=== PATIENT | male | born 2000 | race Caucasian/White ===

== ENCOUNTER 2024-09-01 16:59 | Emergency (ER) | payer OTHER, SELFPAY ==
[2024-09-01 17:08] VITALS: BP 153/94; PULSE 98; RESP 20; TEMP 36.6; O2SAT 98
--- NOTE | 2024-09-01 17:09 | ED_ITS ---
HPI - URI/Sore Throat General Chief Complaint: Dental/Oral Stated Complaint: Sinus Pressure Time Seen by Provider: 09/01/24 17:09 Source: patient, RN notes reviewed and old records reviewed Mode of arrival: ambulatory Limitations: no limitations History of Present Illness HPI Narrative: 23 year old rahat who presents to [facility] care with complaints of starting on with some sinus pressure and congestion and on Sunday he started with headache and left upper posterior tooth pain. Patient reports today that pain in his tooth is worse. He reports that he has been taking Ibuprofen and Tylenol sinus for his symptoms. Patient reports no ear pain or any sore throat or any known fevers. MD elicited complaint: rhinorrhea, nasal congestion, sinus pain and other (headache and tooth pain) Onset (ago): day(s) (4-5 days) Pain scale (0-10): 8 Able to tolerate fluids by mouth: Yes Treatments prior to arrival: ibuprofen and other (Tyenol sinus) Related Data Allergies Allergy/AdvReac Type Severity Reaction Status Date / Time No Known Allergies Allergy Verified 09/01/24 17:12 Review of Systems Review of Systems: CONSTITUTIONAL: Denies malaise, chills, sweats, or fever. EYES: Denies visual changes, redness, or discharge. ENT: Reports rhinorrhea, congestion, sinus pain,no otalgia and no sore throat reports left posterior molar pain. CARDIOVASCULAR: Denies chest pain, palpitations, or edema. RESPIRATORY: Reports no cough.? Denies dyspnea. GASTROINTESTINAL: Denies abdominal pain, nausea, vomiting, diarrhea SKIN: Denies rash or itching. MUSCULOSKELETAL: Denies myalgia. NEUROLOGIC:Reports headache. All systems reviewed & are unremarkable except as noted in HPI and below PMFSH Past Medical History Medical History (Updated 09/02/24 @ 19:50 by Polly Elmore NP) History of strep sore throat Bronchitis Social History Social History (Updated 09/02/24 @ 19:49 by Polly Elmore NP) Smoking status: Never smoker Alcohol intake: current Alcohol use details: social Substance use type: does not use Comments At time of signature, agree with nursing past medical, surgical, social and family history. There is no relevant family history pertinent to the presenting complaint Exam Narrative: GENERAL: Well-appearing, well-nourished, and in no acute distress. HEAD: Normocephalic EYES: PERRLA, conjunctivae clear ENT: Nares clear, turbinates edematous and erythematous, clear discharge, sinus pressure and headache. Mucous membranes moist. TM pearly meek with dull light reflex bilaterally; no tragal tenderness. Oropharynx erythematous without lesions. Tonsils not enlarged and without exudate, no drooling, no hoarseness, no trismus, uvula midline, dentition good no fracture or any evidence of caries in left upper posterior molars no swelling or redness of gums. NECK: Supple. No lymphadenopathy CHEST: Clear to auscultation, breath sounds equal. No wheezing, rhonchi, rales, or stridor. No respiratory distress, speaks in full sentences.no cough noted SAO2 98% on room air HEART: Regular rate and rhythm. No murmur heard. SKIN: Warm, dry, no rash. NEURO: Alert and oriented x3. PSYCH: Normal mood and affect Course Course Emergency Course: Patient is aware of diagnosis, understands and agrees to treatment plan.? Anticipatory guidance given.? Patient agrees to follow-up as directed and is aware of reasons to seek care at the emergency department. Portions of this record may have been created with voice recognition software Level of Care: Express Care Visit Vital Signs Vital signs: Vital Signs Temperature 36.6 C 09/01/24 17:08 Pulse Rate 98 09/01/24 17:08 Respiratory Rate 20 09/01/24 17:08 Blood Pressure 153/94 H 09/01/24 17:08 Pulse Oximetry 98 09/01/24 17:08 Oxygen Delivery Room Air 09/01/24 17:08 Temperature 36.6 C 09/01/24 17:08 Pulse Rate 98 09/01/24 17:08 Respiratory Rate 20 09/01/24 17:08 Blood Pressure 153/94 H 09/01/24 17:08 Pulse Oximetry 98 09/01/24 17:08 Oxygen Delivery Room Air 09/01/24 17:08 Reviewed MDM - URI/Sore Throat MDM Narrative Medical decision making narrative: Differential diagnosis considered: Bee virus, strep pharyngitis, allergic rhinitis, upper respiratory tract infection, sinusitis, rhinosinusitis, nasopharyngitis. viral pharyngitis, otitis media, otitis externa, pneumonia, bronchitis, viral cough syndrome, viral syndrome, and influenza.? Exam findings show no acute concerns or changes; patient is non-toxic appearing and is in no distress.? Patient is appropriate for outpatient treatment and follow-up. Differential Diagnosis Differential diagnosis: Likely upper respiratory infection, sinusitis, viral infection and other (tooth pain) Medical Records Attestation: I reviewed the patient's medical records. Lab Data Attestation: I reviewed the patient's lab results. Critical Care Time Critical Care Time Critical Care Time: No Discharge Plan Discharge Clinical Impression: Toothache Sinusitis Qualifiers: Sinusitis location: pansinusitis Chronicity: acute Recurrence: non-recurrent Qualified Code(s): J01.40 - Acute pansinusitis, unspecified Patient Disposition: Home Condition: Stable Instructions: Antibiotic Form, Sinusitis (ED) Additional Instructions: Increase fluids especially juices and water [id number] cough and cold medicine of your choice for your symptoms Zyrtec Claritin or Jael daily Tylenol or ibuprofen for any fever pain heat to the face 20-30 minutes 4-6 times a day for pain Salt water gargles, throat lozenges or throat sprays as desired Antibiotic as directed--finished the medication If your symptoms persist, change or worsen significantly before you can contact your personal physician then please, without delay, go to the emergency department for further evaluation. Follow-up with PCP in 7-10 days or sooner if needed Follow up with PCP soon in regards to your blood pressure which is elevated above threshold for referral. Blood pressure above 120/80 may indicate pre- hypertension. 153/94 Patient Language: [place] Prescriptions: New amoxicillin-pot clavulanate 875-125 mg tablet 1 tablet PO Q12H Qty: 20 0RF Rx Instructions: take with probiotics daily Follow-up/Referrals: Andrés,Kristopher Hogue MD [Primary Care Provider] - Stand Alone Forms: Work/School Release IP Time of Disposition: 17:22 Quality Jose Coma Scale Eyes: Open Verbal: Oriented and Alert Motor: Follows Commands [place] Coma Total Score: 15
--- OUTSIDE RECORDS SUMMARY | 2024-09-01 18:03 | XMS_ITS | Clinical Summary ---
Author Organization [facility] Address [address] [facility], [place] [address] Phone Care Team Providers Care [employer] Name Role Phone Purvi Meléndez MD Primary Care Provider Allergies Active Allergy Reactions Criticality Noted Date Comments Mobile (Diagnostic) Anaphylaxis 04/26/2017 Medications cephALEXin (KEFLEX) 500 MG Capsule Take 500 mg by mouth 2 times daily. Active Active Problems Problem Noted Date Diagnosed Date Paronychia of great toe of right foot 04/26/2017 Pain of right great toe 04/26/2017 Family History Medical History Relation Name Comments Congestive Heart Failure Maternal Grandfather Cancer Maternal Grandmother Heart Attack Maternal Grandmother Other-comment Paternal Grandfather Cancer Paternal Grandmother Cancer Sister Relation Name Status Comments Maternal Grandfather Maternal Grandmother Paternal Grandfather heart p roblems Paternal Grandmother Sister Social History Tobacco Use Types Packs/Day Years Used Date Smoking Tobacco: Never Smokeless Tobacco: Never Alcohol Use Standard Drinks/Week Comments No 0 (1 standard drink = 0.6 oz pur e alcohol) Sex and Gender Information Value Date Recorded Sex Assigned at Not on file Legal Sex Male 7:15 PM CDT Gender Identity Not on file Sexual Orientation Not on file Last Filed Vital Signs Vital Sign Reading Time Taken Comments Blood Pressure 132/82 04/26/2017 1:50 PM CHEMOTHERAPIST Pulse 88 04/26/2017 1:50 PM CHEMOTHERAPIST Temperature 36.5 C (97.7 F) 04/26/2017 1:50 PM CHEMOTHERAPIST Respiratory Rate 16 04/26/2017 1:50 PM CHEMOTHERAPIST Oxygen Saturation 98% 04/26/2017 1:50 PM CHEMOTHERAPIST Inhaled Oxygen Concentration - - Weight 90.7 kg (200 lb) 04/26/2017 1:50 PM CHEMOTHERAPIST Height 182.9 cm (6') 04/26/2017 1:50 PM CHEMOTHERAPIST Body Mass Index 27.12 04/26/2017 1:50 PM CHEMOTHERAPIST Plan of Treatment Health Maintenance Due Date Last Done Comments Hepatitis C Virus (HCV) Screening 1998 TdaP Immunization 1998 Human Papillomavirus (HPV) Immunization (1 - Male 3-dose series) 2013 Hepatitis B Immunization (1 of 3 - 19+ 3-dose series) 2017 Influenza Immunization (#1) 2024 SARS-COV-2 Immunization (1 - season) 2024 Respiratory Syncytial Virus (RSV) Immunization (Adult) (1 - 1-dose 75+ series) 2073 Meningococcal Immunization (ACWY) Aged Out No longer eligible based on patient's age to complete this topic Pneumococcal Immunization Combined Aged Out No longer eligible based on patient's age to complete this topic Rotavirus Immunization Aged Out No lo nger eligible based on patient's age to complete this topic Insurance MEDICAID [employer] Care Teams [employer] Relationship Specialty Start Date End Date Purvi Meléndez MD [address] [facility] [address] [place] [id number] PCP - General Pediatrics 04/23/17
--- OUTSIDE RECORDS SUMMARY | 2024-09-01 18:03 | XMS_ITS | Data Portability ---
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 [email or web address] Not available 05/09/2022 07:31:45 06/12/2023 06/12/2023 Pt is stable and doing well. 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 He will be getting to a farm girl from [place]---they attend the same evangelical. Not available 07/22/2024 07:17:57 07/30/2024 07/30/2024 Mr. Singh presents with cough, congestion, and headache for the past week. Symptoms have been persistent without significant improvement. Three days ago, the patient developed a sore throat, which has progressively worsened. Not available 08/08/2024 08:57:31 Plan of Treatment Reminders Order Date Submit Date Provider Last Modified By Organization Details Last Modified Time Details Appointments None recorded. Lab rapid strep group A, throat 2024 025 MADAY In-Office Order, Internal Use Only DO Not Attach Compendium DO Not Attach Compendium, Do Not Delete/merge, [id number] 18:00:34 influenza virus A + B + SARS-CoV-2 (COVID19) Ag panel, rapid IA, upper respiratory specimen 2024 025 GURNEE In-Office Order, Internal Use Only DO Not Attach Compendium DO Not Attach Compendium, Do Not Delete/merge, [id number] 18:01:15 HbA1c (hemoglobin A1c), blood 2021 022 [email or web address] In-Office Order, Internal Use Only DO Not Attach Compendium DO Not Attach Compendium, Do Not Delete/merge, [id number] 11:46:00 Referral None recorded. Procedures None recorded. Surgeries None recorded. Imaging None recorded. Medication Orders amoxicillin 875 mg-potassiu m clavulanate 125 mg tablet 2024 025 GURNEE [id number], [address] , [place], [place], [id number], 17:31:51 ketoconazol e 2 % topical cream 2024 025 GURNEE [id number], [address] , [place], [place], [id number], 17:01:54 Patient TargetsNo targets recorded. Patient Instructions Encounter Date Encounter Id Patient Instructions Last Modified By Organization Details Last Modified Time 05/03/2022 [id number] A healthy lifestyle: care instructions Not available 05/03/2022 11:46:00 06/12/2023 [id number] A healthy lifestyle: care instructions [email or web address] Not available 06/12/2023 16:41:35 12/03/2023 [id number] A healthy lifestyle: care instructions [email or web address] Not available 12/03/2023 15:09:47 learning about t he mediterranean diet [email or web address] Not available 12/03/2023 15:09:47 Learning About Being Physically Active [email or web address] Not available 12/03/2023 15:12:27 Plan of care has been discussed with patient including expected therapeutic benefits and potential side effects of prescribed medication and treatments. Patient verbalizes understanding and is in agreement with the plan of care. Patient was instructed to keep all scheduled appointments and contact the clinic for any additional problems. [email or web address] Not available 12/04/2023 23:12:36 07/21/2024 [id number] A healthy lifestyle: care instructions [email or web address] Not available 07/21/2024 17:01:47 athlete's foot: care instructions [email or web address] Not available 07/21/2024 17:01:47 07/30/2024 [id number] strep throat: ca re instructions Not available 07/30/2024 17:31:54 - Always present to ER or Urgent Care with any progression of/alarming symptoms, significant changes in symptoms or any concerning or urgent matters Not available 07/30/2024 17:30:23 Reason for Referral None Reported. Results Created Date Observation Date Name Description Value Unit Range Abnormal Flag Note LastModifiedBy Organization Detail LastModifiedTime 05/03/20 22 05/03/2022 HbA1c (hemo globi n A1c), blood HbA1c 5.3 Not Available In-Office Order Internal Use Only DO Not Attach Compendium DO Not Attach Compendium, Do Not Delete/merge, [id number] 05/03/2022 11:16:36 06/13/19 23 07/04/2022 VISTA SEQ HERED . CANCE R PANEL preauthoriza tion Commen t Prior autho rizat julisa blanton w compl ete Not Available [facility] ([facility]) [address] [facility], [place], [address], 07/14/2022 10:13:11 06/13/19 23 07/14/2022 VISTA SEQ HERED . CANCE R PANEL specimen type Whole Blood Not Available [facility] ([facility]) [address] [facility], [place], [address], 07/14/2022 10:13:11 06/13/1907/14/2022 VISTA SEQ HERED . CANCE R PANEL result summary Negati ve No clini monty signi fican t seque nce or copy numbe r varia nts were detec emanuel. No patho genic or varia nts of uncer tain clini lorena signi fican ce were detec emanuel by full gene seque ncing or delet ion/d uplic ation clara sis for any of the genes teste d in this panel . Not Available [facility] ([facility]) [address] [facility], [place], [address], 07/14/2022 10:13:11 06/13/19 23 07/14/2022 VISTA SEQ HERED . CANCE R PANEL recommendati ons Commen t Nikolai ic couns jenelle is recom fina d to discu ss the clini lorena impli catio ns of this resul t. Nikolai ic couns elcarly are avail able for healt h care provi ders to discu ss this resul t furth er at [phone] BOBBY. To refer your patie nt for nikolai ic couns elimichoacano throu gh Integ rated Nikolai ics, sterling [place]ide call the sched uling line at [phone]. NCCN guide lines recom mend consi derat ion of tumor seque ncing in indiv idual s with tumor s showi ng MMR defic iency and no germl ine patho genic varia nt (Gene tic/F amili al High- Risk Asses sment : Color ectal , Versi on ). [place] [id number] 2 MLH1/ MSH2/ MSH6/ PMS2/ EPCAM Somat ic Tumor Misma tch Repai r Seque ncing and Delet ion/D uplic ation Test is avail able to perfo rm this clara sis. For more infor sterling case conta ct [phone] BOBBY to speak with our labor atory nikolai ic coord inato rs. LIST OF ALL GENES IN PANEL APC MSH2 TP53 BRCA1 CHEK2 CDKN2 A PRKAR 1A MERI MSH6 CDH1 BRCA2 PALB2 RAD51 C RAD51 D NBN PMS2 MLH1 BARD1 SMAD4 BMPR1 A FAM17 5A CDK4 PTEN STK11 BRIP1 EPCAM MUTYH (bial lelic ) Not Available [facility] ([facility]) [address] [facility], [place], [address], 07/14/2022 10:13:11 06/13/19 23 07/14/2022 VISTA SEQ HERED . CANCE R PANEL additional information Commen t Speci men Type: Whole Blood Indic ation for Testi ng: The indic ation for testi ng for this patie nt is a repor emanuel perso nal and/o r famil y histo ry of breas t cance r. Varia nt Class ifica tion: Varia nt class ifica tion is a weigh emanuel asses sment that incor porat es but is not limit ed to the follo wing compo nents : preva lence of a varia nt in the unaff ected (gene ral) popul ation , evide nce of co-se grega tion in affec emanuel indiv idual s, revie w of locus speci fic datab ases and obser mana/r eport ed co-oc curre nce with other delet eriou s varia nts withi n the gene, publi shed funct ional evide nce linki ng a varia nt to pheno types , and predi cted funct ional impac t as deter mined using in-si stas clara ses. Varia nts class ified withi n each gene are repor emanuel in accor dance to the ACMG stand ards and guide lines . Evide nce affec ting a varia nt class ifica tion that alter s its clini lorena signi fican ce will be repor emanuel via an amend ed repor t. Patho genic varia nts negat ively affec t josey l gene funct ion, are assoc iated with disea se, and shoul d be used in clini lorena decis ion sinan holbrook. Likel y patho genic varia nts are stron gly sugge stive of josey l gene funct ion being negat ively affec emanuel, and when combi nah with other evide nce of cance r, may be used in clini lorena decis ion sinan holbrook. Varia nts of uncer tain signi fican ce (VUS) have unkno wn effec ts on gene funct ion, have not been previ ously repor emanuel or have been repor emanuel with inade quate or confl ictin g evide nce regar ding patho genic ity, clini lorena relev ance, or cance r risk. A VUS shoul d not be used in clini lorena decis ion makin g but addit ional monit oring may be consi dered . Likel y benig n varia nts are stron gly sugge stive of havin g no effec t on gene funct ion and are unlik mine to have an incre ased risk for cance r. Benig n varia nts have suffi cient evide nce to be consi dered of no clini lorena signi fican ce. Likel y benig n, benig n and synon ymous varia nts are not repor emanuel, but are avail able upon reque st. Not Available [facility] ([facility]) [address] [facility], [place], [address], 07/14/2022 10:13:11 06/13/1907/14/2022 VISTA SEQ HERED . CANCE R PANEL methodology and limitations Commen t The codin g regio n and flank ing splic e sites are clara zed by NGS (+/-1 0bp) and delet ion/d uplic ation clara sis. Exon- level delet ions/ dupli catio ns are asses sed by aCGH or by MLPA. Clara sis is limit ed to delet ion/d uplic ation testi ng for EPCAM . Clara sis is expan ded for BRCA1 /2 flank ing splic e sites (+/-2 0bp) and to inclu de promo ter delet ions for APC (1B and 1A) and promo ter seque nce varia nts for PTEN (c.-1 300 to c.-75 0). Seque ncing canno t detec t varia nts in regio ns not cover ed by this clara sis, inclu ding nonco ding or deep intro evans varia nts and may not relia daniel detec t milan es in repet itive eleme nts, such as micro satel lite repea ts. Seque ncing may not detec t mosai c varia nts, inver sions , or other genom ic rearr angem ents such as trans posab le eleme nt inser tions . Seque nce clara sis may also be affec emanuel by allel e drop- out due to the prese nce of a rare varia nt under a prime r site or homop olyme antonia regio ns. The metho d does not allow any concl usion as to wheth er two heter ozygo us varia nts are prese nt on the same or on diffe rent chrom osome copie s. Copy numbe r varia tions are asses sed by micro array or multi plex- ligat ion-p robe ampli ficat ion assay (MLPA ) to detec t gross delet ions and dupli catio ns. Copy numbe r clara ses are desig anh to detec t singl e exon, multi -exon , and full gene delet ions or dupli catio ns. These clara ses may not detec t certa in genom ic rearr angem ents, such as trans locat ions (brigida nced or unbal anced ), inver sions , or some parti al exon rearr angem ents. This assay canno t deter mine exact break point s of delet ions or dupli catio ns detec emanuel. The prese nce of pseud ogene s can inter fere with the abili ty to detec t varia nts in certa in genes . For examp le, delet ion/d uplic ation clara sis of PMS2 exons 11-15 , among other s, is compl icate d by the highl y homol ogous PMS2C L pseud ogene . Delet ions/ dupli catio ns in PMS2C L have not been assoc iated with Berman syndr ome, howev er this assay may not be able to deter mine if a delet ion/d uplic ation affec ts PMS2 or PMS2C L. Each gene seque nce is inter prete d indep enden tly of all other gene seque nces; howev er, varia nts in diffe rent genes may inter act to cause or modif y a typic ally monog enic disea se pheno type. In addit ion, the prese nce of an inher ited cance r syndr ome due to a diffe rent nikolai ic cause canno t be ruled out. Any inter preta tion given shoul d be clini monty corre lated with avail able infor matio n about prese ntati on and the patie nt's relev ant famil y histo ry. This test is not inten ded to detec t somat ic varia nts. Bone marro w trans plant ation , recen t blood trans fusio n and activ e hemat ologi lorena pedro madrid es may affec t the outco me of these resul ts. This test was devel oped, and its perfo rmanc e kim cteri stics deter mined , by [facility]. It has not been clear ed or appro mana by the [place] Food and Drug Admin istra tion (FDA) . Not Available [facility] ([facility]) [address] [facility], [place], [address], 07/14/2022 10:13:11 06/13/19 23 07/14/2022 VISTA SEQ HERED . CANCE R PANEL references Commen t 1. Natio nal Compr ehens mary jane Cance r Jeromewfranklin rk. Clini lorena pract ice guide lines , avail able at: www.n ccn.o rg/pr ofess ional s/phy sicia n_gls /defa ult.a spx#s ite 2. Manas Beck. et al. Worki ng Group of the [employer] [employer] [facility] [employer] al [facility]ai [facility] and [facility] Labor atory Quali ty Assur ance Commi ttee. AC clini lorena labor atory stand ards for next- gener ation seque ncing . Nikolai Med. 2013 Jan;1 5(9): 733-4 7. 3. Venu Orellana. et al. Frequ ency of mutat ions in indiv idual s with breas t cance r refer red for BRCA1 and BRCA2 testi ng using next- gener ation seque ncing with a 25-ge ne panel . Silvano r. 2015 May 121(1 ):25- 33. 4. Richard Beck. et al. Utili kellyo n of multi gene panel s in hered itary cance r predi sposi tion testi ng. Nikolai Med. 2014 Mar;1 6(11) :830- 7. Not Available [facility] ([facility]) [address], [place], [address], 07/14/2022 10:13:11 06/13/19 23 07/14/2022 VISTA SEQ HERED . CANCE R PANEL director review Rudi orellana PhD, Dire tor Not Available [facility] ([facility]) [address] [facility], [place], [address], 07/14/2022 10:13:11 06/13/19 23 07/14/2022 VISTA SEQ HERED . CANCE R PANEL pdf . Not Available [facility] ([facility]) [address], [place], [address], 07/14/2022 10:13:11 07/31/19 25 07/30/2024 influ toro virus A + B + SARS- CoV-2 (COVI D19) Ag panel , rapid IA, upper respi rator y speci men Flu A negati ve Not Available In-Office Order Internal Use Only DO Not Attach Compendium DO Not Attach Compendium, Do Not Delete/merge, [id number] 07/30/2024 17:37:56 07/31/19 25 07/30/2024 influ toro virus A + B + SARS- CoV-2 (COVI D19) Ag panel , rapid IA, upper respi rator y speci men Flu B negati ve Not Available In-Office Order Internal Use Only DO Not Attach Compendium DO Not Attach Compendium, Do Not Delete/merge, [id number] 07/30/2024 17:37:56 07/31/19 25 07/30/2024 influ toro virus A + B + SARS- CoV-2 (COVI D19) Ag panel , rapid IA, upper respi rator y speci men Rapid SARS CoV 2 Ag, QL IA, respiratory specimen negati ve Not Available In-Office Order Internal Use Only DO Not Attach Compendium DO Not Attach Compendium, Do Not Delete/merge, [id number] 07/30/2024 17:37:56 07/31/19 25 07/30/2024 rapid strep group A, throa t Strep positi ve Not Available In-Office Order Internal Use Only DO Not Attach Compendium DO Not Attach Compendium, Do Not Delete/merge, [id number] 07/30/2024 17:37:25 Result Notes None recorded. Problems No Known Problems Medical Equipment None Reported. Allergies Allergen ID Allergen Name Allergen Category Reaction Reaction Severity Criticality Documentation Date Start Date Code Code System Note Provider Name and Address Organization Details Recorded Time 702384 strawberr y allergeni c extract food Not available Not available high 05/30/2017 49975 4 RxNorm Not Available Not Available Not Available Medications Name Sig Start Date Stop Date Status Note LastModified by Organization Details LastModified Time penicillin V potassium 250 mg tablet 08/28 completed Not Available Not Available Not Available doxycycline hyclate 100 mg capsule 11/23 completed Not Available Not Available Not Available penicillami ne 250 mg tablet Take 1 tablet 4 times a day by oral route. 08/28 completed Not Available Not Available Not Available Tubersol 5 tub. unit/0.1 mL intradermal injection solution Administe r .1ml interderm ally 09/20 completed Not Available Not Available Not Available ciprofloxac in 0.3 % eye drops INSTILL 1 DROP INTO AFFECTED EYE(S) BY OPHTHALMI C ROUTE EVERY 2 HOURSWHIL E AWAKE FOR 2 DAYS THEN 1 DROP EVERY 4 HRS WHILE AWAKE FOR 5 DAYS 08/28 completed Not Available Not Available Not Available hydrocodone 7.5 mg-acetamin ophen 325 mg tablet Take 1 tablet every 6 hours by oral route. 08/28 completed Not Available Not Available Not Available cephalexin 500 mg capsule 08/28 completed Not Available Not Available Not Available ergocalcife rol (vitamin D2) 1,250 mcg (50,000 unit) capsule TAKE 1 CAPSULE BY MOUTH EVERY WEEK 11/23 completed Not Available Not Available Not Available ketoconazol e 2 % topical cream APPLY TO THE AFFECTED AREA(S) BY TOPICAL ROUTE ONCE DAILY FOR 2-4 WEEKS 2024 active Not Available Not Available Not Avai lable ondansetron 4 mg disintegrat ing tablet Take 2 tablets every 12 hours by oral route. 08/28 completed Not Available Not Available Not Available amoxicillin 875 mg-potassiu m clavulanate 125 mg tablet TAKE 1 TABLET BY MOUTH EVERY 12 HOURS FOR 7 DAYS active Not Available Not Available No t Available Vitals Date Recorded Body height Body mass index (BMI) Body weight Oxygen saturation Oxygen saturation in Arterial blood by Pulse oximetry Heart rate Respiratory rate Body temperature Systolic blood pressure Diastolic blood pressure Provider Name and Address Organization Details Last Updated DateTime 2 181.61 cm 34.8 kg/m2 320532. 87 g 98 % 98 % 86 /min 16 /min 96.8 [degF] 122 mm[Hg] 80 mm[Hg] Mayra Cutler MA [facility] 2 11:11:17 Date Recorded Body weight Body mass index (BMI) Body height Respiratory rate Body temperature Oxygen saturation Oxygen saturation in Arterial blood by Pulse oximetry Heart rate Systolic blood pressure Diastolic blood pressure Provider Name and Address Organization Details Last Updated DateTime 4 006736. 08 g 36.5 kg/m2 181.61 cm 16 /min 98.3 [degF] 96 % 96 % 82 /min 125 mm[Hg] 89 mm[Hg] Purvi Kennedy MA [facility] 4 16:10:08 Date Recorded Body height Body mass index (BMI) Body weight Respiratory rate Body temperature Oxygen saturation Oxygen saturation in Arterial blood by Pulse oximetry Heart rate Systolic blood pressure Diastolic blood pressure Provider Name and Address Organization Details Last Updated DateTime 4 181.61 cm 35.1 kg/m2 873275. 8 g 16 /min 97.2 [degF] 97 % 97 % 81 /min 122 mm[Hg] 82 mm[Hg] Purvi Kennedy [place] [facility] 4 15:03:20 Date Recorded Body height Body mass index (BMI) Body weight Respiratory rate Body temperature Oxygen saturation Oxygen saturation in Arterial blood by Pulse oximetry Heart rate Systolic blood pressure Diastolic blood pressure Provider Name and Address Organization Details Last Updated DateTime 5 181.61 cm 34.5 kg/m2 681942. 73 g 16 /min 98.5 [degF] 98 % 98 % 79 /min 126 mm[Hg] 85 mm[Hg] Purvi Kennedy [place] [facility] 5 16:55:40 Date Recorded Body height Body mass index (BMI) Body weight Body temperature Respiratory rate Heart rate Oxygen saturation Oxygen saturation in Arterial blood by Pulse oximetry Systolic blood pressure Diastolic blood pressure Provider Name and Address Organization Details Last Updated DateTime 5 181.61 cm 34.2 kg/m2 119369. 78 g 96.9 [degF] 16 /min 85 /min 93 % 93 % 118 mm[Hg] 75 mm[Hg] Eufemia Troncoso MA [facility] 5 17:16:02 Social History Question Answer Notes LastModified by Organizat ion Details LastModified Time Tobacco Smoking Status Never Smoker Nereyda Mushtaq FAVIOLA nur, [place] - [facility] 08/28/2018 14:06:03 Do You Have An Advance Directive? No Information not available 11/24/2019 What Is Your Level Of Alcohol Consumption? None Information not available 08/28/2018 Are You Blind Or Do You Have Difficulty Seeing? Yes Glasses Information not available 05/03/2022 What Is Your Level Of Caffeine Consumption? Occasional One Soda Every Other Day Drinks Sparkling Water Information not available 05/03/2022 How Much Tobacco Do You Chew? None Information not available 08/28/2018 In The 14 Days Before Symptom Onset, Have You Had Close Contact With A Laboratory-confi rmed COVID-19 While That Case Was Ill? No Information not available 11/24/2019 In The 14 Days Before Symptom Onset, Have You Had Close Contact With A Person Who Is Under Investigation For COVID-19 While That Person Was Ill? No Information not available 11/24/2019 Have You Been To An Area Known To Be High Risk For COVID-19? 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 No Information not available 05/03/2022 What Type Of Diet Are You Following? REGULAR Information not available 08/28/2018 Which Illicit Or Recreational Drugs Have You Used? None Information not available 08/28/2018 Do You Or Have You Ever Used E-cigarettes Or Vape? 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 Yes Information not available 11/24/2019 Hard Of Hearing Or Deaf In One Or Both Ears? No Information not available 08/28/2018 Legally Blind In One Or Both Eyes? No Information not available 08/28/2018 Marital Status Single [email or web address] Informatio n not available 08/28/2018 What Was The Date Of Your Most Recent Tobacco Screening? 07/30/2024 Information not available 07/30/2024 How Many Children Do You Have? 0 Information not available 05/03/2022 Performs Monthly Self-breast Exam? No Information not available 11/24/2019 What Is Your Relationship Status? Single Information not available 05/03/2022 Do You Use Your Seat Belt Or Car Seat Routinely? Yes Information not available 05/03/2022 Seat Belts Used Routinely Yes Information not available 11/24/2019 Are You Sexually Active? No Information not available 05/03/2022 Smoke Alarm In Home Yes Information not available 11/24/2019 Do You Have Smoke And Carbon Monoxide Detectors In Your Home? Yes Information not available 05/03/2022 Are You Passively Exposed To Smoke? No Information not available 05/03/2022 Do You Or Have You Ever Used Smokeless Tobacco? Never Used Smokeless Tobacco Information not available 11/24/2019 How Much Tobacco Do You Smoke? No Information not available 11/24/2019 General Stress Level Low Information not available 08/28/2018 Do You Feel Stressed (tense, Restless, Nervous, Or Anxious, Or Unable To Sleep At Night)? [id number] Information not available 05/03/2022 Do You Use Any Illicit Or Recreational Drugs? No Information not available 05/03/2022 Do You Use Sunscreen Routinely? Yes Information not available 11/24/2019 Has Tobacco Cessation Counseling Been Provided? No Information not available 08/28/2018 On What Date Was Tobacco Cessation Counseling Provided? 07/30/2024 Josué Answered No To The Tobacco Cessation Counseling Provided Question On 08/28/2018. Information not available 07/30/2024 How Many Years Have You Smoked Tobacco? 0 Information not available 11/24/2019 Do You Or Have You Ever Used Any Other Forms Of Tobacco Or Nicotine? No Information not available 05/03/2022 Sex: Male Functional Status Question Answer Note LastModified by Organizat ion Details LastModified Time Are you able to care for yourself? Yes Information not available 05/03/2022 What is your exercise level? Occasional Information not available 08/28/2018 Mental Status None recorded. Family History Relationship Description Onset Age of this Age Resolved Age Notes LastModified by Organization Details LastModified Time Sister Asthma [email or web address] Not availabl e 05/30/2017 14:29:01 Sister Malignant melanoma [email or web address] Not available 05/14 14:29:34 Father Hypertensive disorder [email or web address] Not available 05/14 14:29:09 Notes:No new reported , 06/12/23, 12/03/23, 07/21/24 Medical History Condition Response Coronary Artery Disease N Other N Atrial Fibrillation N High Blood Pressure N Depression N COPD N Blood Clots N Anxiety Disorder N Muscle, Joint, or Bone Problems N Acid Reflux (GERD) Y Cancer N Stroke N High Cholesterol N Liver Disease N Headaches N Kidney or Bladder Problems N Thyroid Problems N GI Problems N Skin Problems N Anemia N Heart Attack ([place]) N Diabetes N Seizures/Epilepsy N Asthma Y Allergies Y Hepatitis N Heart Failure N Osteoporosis N Immunizations Vaccine Type Date Status Note Provider Nam e and Address Organization Details Recorded Time Tdap 02/01/2011 completed FAVIOLA Molina null, [place] - [facility] 08/28/2018 15:52:43 MMR 07/22/1999 completed F[place]OLA [place] [facility] 08/28/2018 15:53:16 MMR 12/01/2002 completed [place] [facility] 08/28/2018 15:53:27 varicella 01/24/2000 dustin Landin [place] [facility] 08/28/2018 15:53:53 varicella 01/07/2010 completed Nereyda Landin [place] [facility] 08/28/2018 15:54:04 COVID-19, mRNA, LNP-S, PF, 30 mcg/0.3 mL dose 08/03/2020 completed [place] [facility] 10/13/2020 14:02:01 COVID-19, mRNA, LNP-S, PF, 30 mcg/0.3 mL dose 09/02/2020 completed [place]iza [place] [facility] 10/13/2020 14:02:48 Past Encounters Encounter ID Performer Location Encounter Start Date Encounter Closed Date Diagnosis/Indication Diagnosis SNOMED-CT Code Diagnosis ICD10 Code Diagnosis Note [id number] WARNER LEIJA NP [facility] [address] [place] [address] 05/30/2017 14:23:00 05/31/2017 16:42:44 Obesity 961407937 E66.09 [id number] WARNER LEIJA NP [facility] [address] [place] [address] 09/24/2017 16:01:12 09/24/2017 17:22:27 Acute conjunctivitis 39023974 H10.480 [id number] VIJAY Emerson (Adult Med) [address] [place] [address] 08/28/2018 13:55:36 08/29/2018 09:50:38 Adult health examination 706823241 Z00.00 He will return for labs when he comes in for PPD Tuberculos is screening 003928377 Z11.1 pt advised to return for PPD either Sunday or next week, if he is unable to do it today and have it read on Sunday. Body mass index 30+ - obesity 525989728 Z68.32 discussed diet low in fat, less fried foods. Gastroesop hageal reflux disease without esophagitis 314401880 K21.9 better w/ change in diet [id number] Charlene Ramirez (Adult Med) [address] [place] [address] 09/18/2018 11:17:15 09/19/2018 08:47:34 Tuberculosis screening 085125248 Z11.1 pt advised to return for PPD either Sunday or next week, if he is unable to do it today and have it read on Sunday. [id number] MD Rashad Cabral 14 IM [address] [facility] [place] [address] 11/24/2019 08:29:17 11/25/2019 11:38:22 Obesity 234018415 E66.9 Wears glasses 317634740 Z97.3 sees an ophthalmol ogist [id number] COTY Noel [address] [place] [address] 02/12/2020 13:40:00 02/17/2020 07:23:11 Viral syndrome 703265060 B34.9 Coronavirus infection 18 1792591 B34.2 [id number] MD Rashad Cabral 14 IM [address] [facility] [place] [address] 05/03/2022 10:59:00 05/09/2022 13:27:33 Obesity 144328158 E66.9 Pt was encouraged to lose extra wt. Adult [facility] examination 880652968 Z00.00 [id number] MD Rashad Cabral 14 IM [address] [facility] [place] [address] 06/12/2023 15:57:04 06/14/2023 10:10:25 Obesity 781203851 E66.9 Pt was encouraged to lose the extra wt gained since last year. Active or passive immunization 390291437 Z23 Pt qualifies for a tetanus booster--h e may consider this in the future [id number] GENET DYE Rashad 14 IM [address] [facility] [place] [address] 12/03/2023 14:50:59 12/05/2023 13:53:51 HIV screening declined 1725254904 69849 Z53.20 Tetanus va ccination declined by patient 250996684 Z28.21 Body mass index 30+ - obesity 303723302 Z68.35 STEAM BLOCKER advised patient to follow a well balanced diet and obtain regular exercise. Informatio nal handout provided. Adult [facility] th examination 753844782 Z00.00 -Patient overall appears to be in good health. -STEAM BLOCKER discussed the importance of regular dental visits. -STEAM BLOCKER discussed the importance of routine eye exams. -STEAM BLOCKER discussed the importance of a well balanced diet and regular exercise. Patient verbalized understand ing. Informatio nal handouts were provided. -Patient to follow up with Dr. Bowen for annual labwork. [id number] Kristopher Bowen MD Rice 14 IM [address] [facility] [address] Dozier [address] [place] [address] 07/21/2024 16:40:55 07/22/2024 15:54:55 Obesity 499071381 E66.9 Pt has lost Tinea pedis 2170797 B35. 3 pt was encouraged to go barefoot at home and to wear shoes that breathe [id number] RUPINDER DIETRICH NP [facility] [address] [place] [address] 07/30/2024 16:42:32 08/08/2024 13:27:27 Sore throat 067375743 J02.9 Supportive care with increased hydration, rest, and over-the-c ounter analgesics such as acetaminop hen or ibuprofen for pain and fever.Arvin mmended warm saltwater gargles and throat lozenges to soothe sore throat.Fol low up if symptoms do not improve in 3-5 days or if new symptoms arise. Streptococ lorena sore throat 69052973 J02.0 - Rapid strep positive- Contagious until 24 hours after starting antibiotic s; avoid close contact and practice hand hygiene.- Replace toothbrush after 24 hours of antibiotic s to prevent reinfectio n. Viral uppe r respiratory tract infection 427442545 J06.9 Health Concerns Section Related Observation LastModified by Organization Detai ls LastModified Time None Recorded Concern Status LastModified by Organization Details LastModified Time None Recorded Advance Directives Directive N: Payers Encounter Date Sequence Insurance Name Policy Number Policy Dunlap Covered Member ID Dunlap Member ID Guarantor Name 05/03/2022 1 [facility] - DOS ON OR AFTER 20 (MEDICAID REPLACEMENT - HMO) Russel Ramsey [id number] Russel Ramsey 06/12/2023 SLIDING FEE SCHEDULE - DISCOUNT Russel Ramsey 12/03/2023 2 *SELF PAY* Be ricardo Ramsey 07/21/2024 2 *SELF PAY* Be ricardo Ramsey 07/30/2024 2 *SELF PAY* Be ricardo Ramsey 07/30/2024 1 [facility] [id number] Russel Ramsey [id number] Russel Ramsey Notes Date Note Type Note Provider Name and Address Organization Details Recorded Time 05/03/2022 text/html Pt presents for a regular checkup. Kristopher Bowen MD Attn: Accounting, [address] [place], [address], [facility] 05/09/2022 07:33:32 06/12/2023 text/html Pt presents for an annual checkup. He has finished his schooling at [employer] and is presently applying for work. Kristopher Bowen MD Attn: Accounting[address] [place], [address], [facility] 06/13/2023 17:56:45 12/03/2023 text/html Patient presents to the clinic for a work physical. Patient is established with Dr. Bowen for primary care. Patient's past medical history includes GERD and asthma (as a child), 4 wisdom teeth removed, ingrown toe nail extraction. Patient denies any tobacco, drug, or alcohol use. 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 GENEVA DYE Attn: Accounting[address] [place], [address], [facility] 12/04/2023 23:14:43 07/21/2024 text/html Pt presents with concerns about athlete's foot at left foot. 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 Singh presents with cough, congestion, and headache for the past week. Symptoms have been persistent without significant improvement. Three days ago, the patient developed a sore throat, which has progressively worsened. RUPINDER DIETRICH NP Attn: Accounting,[address] [place], [address], [facility] 08/08/2024 09:01:52
--- OUTSIDE RECORDS SUMMARY | 2024-09-01 18:03 | XMS_ITS | Referral Summary ---
Author Organization [facility] [address] Address [address] [place] [address] Phone Care Team Providers Care Corporate Compliance Manager Name Role Phone Kristopher Bowen MD Primary Care Provider [phone] Allergies Active Allergy Reactions Criticality Noted Date Comments [place] High Medications No known medications Active Problems Problem Noted Date Diagnosed Date Laceration of right thumb wi thout foreign body without damage to nail 12/20/2022 Pain of right great toe 04/26/2017 Paronychia of great toe of right foot 04/26/2017 Overweight 07/31/2014 Overview (08/17/2016): Overweight Medical examinations/reports status 09/11/2012 Overview (08/17/2016): Health care maintenance Myopia 12/01/2010 Overview (08/17/2016): Myopia Precordial pain 11/25/2007 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/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 Immunizations Immunization Administration Dates Next Due DTaP 12/01/2002, 1,06/03/1999,03/29,01/21/1999 Hep A, Ped Unspecified 12/28/2010,01/07/2010 Hep B, Adolescent or Pediatric 0,03/29/1999,01/21/1999,11/17 HiB 04/09/2001, 0,03/29/1999,01/21 Hib (HbOC) 04/09/2001, 0,03/29/1999,01/21 IPV 12/01/2002, 1,03/29/1999,01/21 Influenza, Split 01/07/2010 Influenza, Trivalent, Preser vative Free, Intramuscular 03/15/2009 MMR 12/01/2002,01/24/2000,07/22/1999 Meningococcal Conjugate (Menveo) 02/01/2011 Meningococcal MCV4P (Menactra) 11/24/2016 Meningococcal Polysaccharide (Menomune) 02/01/2011,01/07/2010 PPD TEST 02/11/2021 Tdap 02/01/2011,01/07/2010 Tetanus Toxoid, Unspecified 05/14/2012 Varicella 01/07/2010,01/24/2000 Social History Tobacco Use Types Packs/Day Years Used Date Smoking Tobacco: Never Smokeless Tobacco: Never Personal Safety Answer Date Recorded Have you ever been in or are you currently in a harmful physical or emotional relationship or is someone making you feel afraid or unsafe? 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 Gender Identity Male 01/02/2020 12:54 PM CDT Sexual Orientation Straight 01/02/2020 12 :54 PM CDT Last Filed Vital Signs Vital Sign Reading Time Taken Comments Blood Pressure 150/102 12/20/2022 7:10 PM CDT Pulse 99 12/20/2022 7:10 PM CDT Temperature 36.7 C (98 F) 12/20/2022 7:10 PM CDT Respiratory Rate 18 12/20/2022 7:10 PM CDT Oxygen Saturation 99% 12/20/2022 7:10 PM CDT Inhaled Oxygen Concentration - - Weight 120.2 kg (265 lb) 12/20/2022 7:10 PM CDT Height 182.9 cm (6') 07/23/2019 7:08 PM CDT Body Mass Index 35.94 07/23/2019 7:08 PM CDT Plan of Treatment Not on file Insurance [facility] MEDICAID [facility] ANTHEM PREFERRED [facility] BL CHOICE [place]F [place] PREFERRED Member Subscriber Plan / Payer (Ef fective 2018-Present) Name:Russel Ramsey Relation to Subscriber:Child Name:ASTRID RAMSEY Date of :1957 (Home) [address]: [address] [place] [address] Payer ID:[id number] (NAIC) Type: ALLIANCE Address: [address] Care Teams Corporate Compliance Manager Relationship Specialty Start Date End Date Kristopher Bowen MD PCP - General Family Medicine 01/09/20
--- OUTSIDE RECORDS SUMMARY | 2024-09-01 18:03 | XMS_ITS | Encounter Summary ---
Author Organization [facility] Address [address] [facility] [place] [address] Phone Care Team Providers Care Wire Spiral Binder Name Role Phone Purvi Meléndez MD Primary Care Provider [phone] Kristopher Bowen MD Primary Care Provider [phone] Encounter Details Date Type Department Care Team (Late st Contact Info) Description 03/14/2017 Orders Only [facility] [address] [place] [address] Polly Kohli RN Social History Tobacco Use Types Packs/Day Years Used Date Smoking Tobacco: Never Assessed Sex and Gender Information Value Date Recorded Sex Assigned at Not on file Legal Sex Male 1:57 AM CREAM BUYER Gender Identity Male 01/02/2020 12:54 PM CDT Sexual Orientation Straight 01/02/2020 12 :54 PM CDT documented as of this encounter Ordered Prescriptions Prescription Sig Dispense Quantity Refills Last Filled Start Date End Date cephalexin (KEFLEX) 500 mg capsule Give 2 tablets two times a day x 10 days. 40 capsule 03/14/2017 0 documented in this encounter Plan of Treatment Not on file documented as of this encounter Visit Diagnoses Not on filedocumented in this encounter Care Teams Wire Spiral Binder Relationship Specialty Start Date End Date Purvi Meléndez MD [address] [place] [address] PCP - General 03/13/16 01/08/20 Kristopher Bowen MD [address] [place] [address] PCP - General Family Medicine 01/09/20 documented as of this encounter
--- OUTSIDE RECORDS SUMMARY | 2024-09-01 18:03 | XMS_ITS | Encounter Summary ---
Author Organization [facility] Address 1 [facility] [place] [address] Phone Care Team Providers Care Portrait Artist Name Role Phone Purvi Meléndez MD Primary Care Provider [phone] Kristopher Bowen MD Primary Care Provider [phone] Encounter Details Date Type Department Care Team (Late st Contact Info) Description 04/20/2017 Orders Only [facility] [address] [place] [address] Purvi Meléndez MD [address] [place] [address] Ingrown nail of great toe of right foot (Primary Dx) Social History Tobacco Use Types Packs/Day Years Used Date Smoking Tobacco: Never Assessed Sex and Gender Information Value Date Recorded Sex Assigned at Not on file 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
--- OUTSIDE RECORDS SUMMARY | 2024-09-01 18:03 | XMS_ITS | Clinical Summary ---
Author Organization [facility] [address] Address [address] [employer] [place] [address] Phone Care Team Providers Care Bioprocess Development Engineer Name Role Phone Kristopher Bowen MD Primary Care Provider [phone] Allergies Active Allergy Reactions Criticality Noted Date Comments [place] High Medications No known medications Active Problems [...] 02/01/2011,01/07/2010 Tetanus Toxoid, Unspecified 05/14/2012 Varicella 01/07/2010,01/24/2000 Medical History Medical History Date Comments Hx Other Medical 2000 9-8 to 39 y/o G 8 Hx Other Medical FX L tibia 04-18 Family History Medical History Relation Name Comments Diabetes Other 1 Family history of Diabetes mellitus; Other Other 2 Family history of Sudden 48: [place]; Other Other 3 Family history of MVP; Other Other 4 Family history of Muscular Dystrophy; Relation Name Status Comments Other 1 Other 2 Other 3 Other 4 Social History Tobacco Use Types Packs/Day Years [...] on file Legal Sex Male 1:57 AM PARADI OPERATOR Gender Identity Male 01/02/2020 12:54 PM CDT Sexual Orientation Straight 01/02/2020 12 :54 PM CDT Obstetrics History Last Filed Vital Signs Vital Sign Reading [...] 07/23/2019 7:08 PM CDT Plan of Treatment Health Maintenance Due Date Last Done Comments Depression Screening 1998 Hepatitis C Screening 1998 HPV Vaccines (1 - Male 3-dose series) 2013 Regular Well Visit/Exam 18-64 2016 DTaP/Tdap/Td Vaccine (8 - Td or Tdap) 02/01/2021 02/01/2011, 01/07/2010, 12/01/2002, Additional history exists Influenza Vaccine (Season Ended) 2025 01/07/2010, 03/15/2009 Hepatitis B Screening Completed 01/07/2010 , 03/29/1999, 01/21/1999, Additional history exists Varicella Vaccines Completed 01/07/2010, 01/24/2000 Pneumococcal vaccine <65 Aged Out No longer eligible based on patient's age to complete this topic Insurance [facility] MEDICAID [facility] BL CHOICE PRF [place] [facility] Member Subscriber Plan / Payer (Ef fective 2018-Present) Name:Russel Ramsey Relation to Subscriber:Child Name:ASTRID RAMSEY Date of :1957 (Home) [address]: [address] [place] [phone] Payer ID:[id number] (NAIC) Type: ALLIANCE Address: [address] Care Teams Bioprocess Development Engineer Relationship Specialty Start Date End Date Kristopher Bowen MD PCP - General Family Medicine 01/09/20
--- OUTSIDE RECORDS SUMMARY | 2024-09-01 18:07 | XMS_ITS | Clinical Summary ---
Author Organization [facility] Address [address] [place] [address] Care Team Providers Care Manager Ecommerce Name Role Phone Unavailable Primary Care Provider Unavailabl e Social History Tobacco Use Types Packs/Day Years Used Date Smoking Tobacco: Never Assessed Sex and Gender Information Value Date Recorded Sex Assigned at Not on file Legal Sex Male 6:38 PM DIRECTOR OF GROUP SALES Gender Identity Not on file Sexual Orientation Not on file Plan of Treatment Health Maintenance Due Date Last Done Comments Annual Physical 2001 HPV Vaccines (1 - Male 3-dos e series) 2013 Hepatitis C 2016 DTaP, Tdap and Td Vaccines ( 1 - Tdap) 2017 Hepatitis B Vaccines (1 of 3 - 19+ 3-dose series) 2017 COVID-19 Vaccine (1 - 2023-2 5 season) 2024 Meningococcal B Vaccine Aged Out No l onger eligible based on patient's age to complete this topic Meningococcal Vaccine Aged Out No tom zak eligible based on patient's age to complete this topic Pneumococcal Vaccine: Pediat rics (0 to 5 Years) and At-Risk Patients (6 to 49 Years) Aged Out No longer eligible b ased on patient's age to complete this topic RSV Immunizations Under 20 Months Aged Out No longer eligible based on patient's age to complete this topic
== END 2024-09-01 17:26 | disposition home or self-care (01) ==
PROVIDERS: Emergency Provider Registered Nurse; PCP Family Medicine
DX: K08.89 Other specified disorders of teeth and supporting structures (principal); J01.40 Acute pansinusitis, unspecified
CPT/HCPCS: 99203; G0463